=== PATIENT | male | born 1955 | race Caucasian/White ===

== ENCOUNTER 2016-11-25 15:01 | Emergency (ER) | payer MEDICARE ==
--- NOTE | ~2016-11-25 | CR127 ---
[facility]. [facility] A Service of [facility] RADIOLOGY TEXT RESULTS PATIENT: RUBY VERNON LOCATION: SED : 59 UNIT #: [id number] AGE: [address]: Marlena Lilly SEX: M ORDER DR: [id number] [place] [id number] E MR#: [id number] Acc #: [id number] NAME: RUBY VERNON : 1955 SEX: M STUDY DATE/TIME: 11/25/2016 14:54 UNIT: SED ROOM: STUDY DESCRIPTION: CR Foot Complete Min 3 View Rt Attending Physician: Marlena Lilly Pa-C Ordering Physician: Physician Non-Staff Primary Care Physician: Ramses Musa M.D. MEDICAL IMAGING REPORT This report is preliminary unless electronic signature is present. EXAM Right foot, 11/25 INDICATIONS Foot pain after fall 4 days ago. FINDINGS 3 views of the right foot were obtained. Posterior and plantar calcaneal spurs are present. 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 There is an oblique nondisplaced fracture through the diaphysis of the third proximal phalanx. This does not appear to involve either articular surface. No other fractures are identified. IMPRESSION Nondisplaced oblique fracture of the third proximal phalanx. Dictated by... Ronald Choi Jr., M.D. THIS IS AN ELECTRONICALLY VERIFIED REPORT Ronald Choi Jr., M.D. at 11/26/2016 5:50 AM ZORAIDA/jaye TD: 11/26/2016 00:44 JOB #: [id number] MEDICAL IMAGING REPORT Page 1 of 1
[~2016-11-25 15:01] MED LIST: ABILIFY; ACCURETIC 20-121 TAB; ACETAMINOPHEN PO; ALEVE220 M1 PO; ATENOLOL50 MG PO; CVS GLUCOSAMIN PO; FISH OIL 1,0001 EAC3 PO; IBUPROFEN800 MG PO; LISINOPRIL-HCTZ1 T14 PO; NAPROSYN500 MG PO; NORVASC PO; PERCOCET5/325 PO; PROZAC PO; RISPERIDONE PO; WELLBUTRIN PO; ZESTORETIC 20/21 TAB PO
== END 2016-11-25 15:43 | disposition home or self-care (01) ==
LOC: SED 15:01
DX: S92.514A Nondisplaced fracture of proximal phalanx of right lesser toe(s), initial encounter for closed fracture (principal); I10 Essential (primary) hypertension; F32.9 Major depressive disorder, single episode, unspecified; N28.9 Disorder of kidney and ureter, unspecified; W22.8XXA Striking against or struck by other objects, initial encounter; Y92.009 Unspecified place in unspecified non-institutional (private) residence as the place of occurrence of the external cause
CPT/HCPCS: 29550; 73630; 99283

== ENCOUNTER 2017-04-30 07:31 | Emergency (ER) | payer MEDICARE ==
[2017-04-30 08:19] LABS: URINE SOURCE CLEAN CATCH
[2017-04-30 08:21] LABS: URINE APPEARANCE CLEAR; URINE BILIRUBIN NEG (NEG); URINE BLOOD NEG (NEG); URINE COLOR YELLOW; URINE GLUCOSE NEG (NORM); URINE KETONE NEG (NEG); URINE LEUKOCYTE ESTERASE NEG (NEG); URINE NITRATE NEG (NEG); URINE PH 5.5 (5-8); URINE PROTEIN NEG (NEG); URINE SPECIFIC GRAVITY 1.025 (1.003-1.035); URINE UROBILINOGEN 0.2 MG/DL (NORM)
[2017-04-30 08:23] LABS: MICRO INDICATED? NO
== END 2017-04-30 10:32 | disposition home or self-care (01) ==
LOC: SED 07:31
PROVIDERS: Emergency Medicine
DX: S39.012A Strain of muscle, fascia and tendon of lower back, initial encounter (principal); Z79.899 Other long term (current) drug therapy; X58.XXXA Exposure to other specified factors, initial encounter
CPT/HCPCS: 81003; 99283